=== PATIENT | female | born 1945 | race Caucasian/White ===

== ENCOUNTER → 2019-01-10 | Outpatient (CLI) | payer MEDICARE, OTHER ==
--- NOTE | 2019-01-11 12:46 | CR ---
CLINICAL HISTORY: 73-year-old female with dyspnea and chest pain. No previous films immediately available at this institution. INTERPRETATION: Abnormal (PA/lateral chest films) Bilateral pleural parenchymal fibronodular densities both upper lobes and asymmetric volume loss right upper lobe. Silhouetting right heart border. Small nodular masslike lesions respectively in the lateral segment right middle/left upper lobes. Ectatic thoracic aorta. Normal cardiac silhouette without cephalization of flow, signs of alveolar edema or dependent effusion. No focal lobar pneumonia. CONCLUSION: Markedly abnormal but no comparison chest films. Suggestion granulomatous disease (old TB?) but cannot exclude malignancy. Recommend considering CT scan with contrast.
== END ==
LOC: DL.CLIN 11:46
PROVIDERS: ATTEND Nurse Practitioner
DX: R07.9 Chest pain, unspecified (principal); R06.00 Dyspnea, unspecified; R93.89 Abnormal findings on diagnostic imaging of other specified body structures
CPT/HCPCS: 71046; 99213